=== PATIENT | female | born 2000 | race Caucasian/White ===

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

== ENCOUNTER 2018-01-09 14:01 | Emergency (ER) | payer MEDICAID | END 2018-01-09 15:36 | disposition home or self-care (01) | LOC: D.ER 14:01 | DX: S80.01XA Contusion of right knee, initial encounter (principal); W19.XXXA Unspecified fall, initial encounter; Y93.89 Activity, other specified; Y92.830 Public park as the place of occurrence of the external cause; S83.91XA Sprain of unspecified site of right knee, initial encounter ==

== ENCOUNTER 2018-01-21 10:07 | Emergency (ER) | payer MEDICAID ==
[2018-01-21 10:53] LABS: UDS - AMPHET NEGATIVE QUAL (NEGATIVE); UDS - BARB NEGATIVE QUAL (NEGATIVE); UDS - BENZO NEGATIVE QUAL (NEGATIVE); UDS - COCAINE NEGATIVE QUAL (NEGATIVE); UDS - OPIATE NEGATIVE QUAL (NEGATIVE); UDS - PCP NEGATIVE QUAL (NEGATIVE); UDS - THC NEGATIVE QUAL (NEGATIVE)
[2018-01-21 11:03] LABS: APPEARANCE HAZY (CLEAR); COLOR DK YELLOW (YELLOW)
[2018-01-21 11:04] LABS: BACTERIA FEW /hpf (NONE SEEN); BILIRUBIN NEGATIVE (NEGATIVE); EPITHELIAL CELLS 0-5 /hpf (0-5); GLUCOSE NEGATIVE (NEGATIVE); KETONE NEGATIVE (NEGATIVE); MUCUS >1+ /lpf (NONE SEEN); NITRITE NEGATIVE (NEGATIVE); PROTEIN NEGATIVE (NEGATIVE); RED CELLS - URINE 25-50 /hpf (0-5); SPECIFIC GRAVITY 1.015 (1.005-1.020); UROBILINOGEN NORMAL (NORMAL); WHITE CELLS - URINE 0-5 /hpf (0-5)
[2018-01-21 11:07] LABS: BASOPHILS 0.2 % (0-2); EOSINOPHILS 3.6 % (0-7); HEMOGLOBIN 10.6 g/dL (12-16); IMMATURE GRANULOCYTES 0.5 % (0-5); LYMPHOCYTES 30.4 % (15-50); MCH 24.5 pg (26.0-34.0); MCHC 32.1 g/dL (31.0-37.0); MCV 76.2 fL (80.0-100.0); MEAN PLATELET VOLUME 9.7 fL (7.4-10.4); MONOCYTES 10.1 % (2-11); NEUTROPHILS 55.2 % (40-80); PLATELET COUNT 361 10x3/uL (130-400); RBC 4.33 10x6/uL (4.00-5.40); RDW 16.2 % (11.5-14.5); WBC 8.1 10x3/uL (4.8-10.8)
[2018-01-21 11:37] LABS: ALBUMIN 2.9 g/dL (3.4-5.0); ALKALINE PHOSPHATASE 74 U/L (46-116); ALT (SGPT) 15 U/L (10-68); BILIRUBIN - TOTAL 0.14 mg/dL (0.2-1.3); CALC OSMOLALITY 274 mosm/kg (275-300); CALCIUM 8.8 mg/dL (8.5-10.1); CARBON DIOXIDE 25.1 mmol/L (21.0-32.0); CHLORIDE - SERUM 105 mmol/L (98-107); CREATININE - SERUM 0.7 mg/dL (0.6-1.3); GLUCOSE 102 mg/dL (74-106); POTASSIUM - SERUM 3.6 mmol/L (3.5-5.1); PROTEIN - SERUM 6.9 g/dL (6.4-8.2); SODIUM 138 mmol/L (136-145); UREA NITROGEN 11 mg/dL (7-18); eGFR NON AFRICAN AMERICAN > 90 mL/min (90-120)
== END 2018-01-21 11:15 | disposition home or self-care (01) ==
LOC: D.ER 10:07
PROVIDERS: Emergency Medicine
DX: F43.22 Adjustment disorder with anxiety (principal); Z86.59 Personal history of other mental and behavioral disorders; F43.10 Post-traumatic stress disorder, unspecified

== ENCOUNTER → 2018-01-28 09:49 | Outpatient (CLI) | payer MEDICAID | END | disposition home or self-care (01) | LOC: D.US 09:49 | DX: N63.21 Unspecified lump in the left breast, upper outer quadrant (principal) ==

== ENCOUNTER 2018-02-01 23:11 | Emergency (ER) | payer MEDICAID ==
[2018-02-02 01:46] LABS: APPEARANCE CLEAR (CLEAR); BILIRUBIN NEGATIVE (NEGATIVE); COLOR YELLOW (YELLOW); GLUCOSE NEGATIVE (NEGATIVE); KETONE SMALL mg/dL (NEGATIVE); NITRITE NEGATIVE (NEGATIVE); PROTEIN NEGATIVE (NEGATIVE); UROBILINOGEN NORMAL (NORMAL)
[2018-02-02 01:50] LABS: BASOPHILS 0.1 % (0-2); EOSINOPHILS 0.5 % (0-7); HEMATOCRIT 35.2 % (36.0-48.0); HEMOGLOBIN 11.3 g/dL (12-16); IMMATURE GRANULOCYTES 0.2 % (0-5); MCH 24.2 pg (26.0-34.0); MCHC 32.1 g/dL (31.0-37.0); MCV 75.4 fL (80.0-100.0); MEAN PLATELET VOLUME 9.5 fL (7.4-10.4); MONOCYTES 4.9 % (2-11); NEUTROPHILS 88.3 % (40-80); PLATELET COUNT 361 10x3/uL (130-400); RBC 4.67 10x6/uL (4.00-5.40); RDW 16.5 % (11.5-14.5); WBC 15.6 10x3/uL (4.8-10.8)
[2018-02-02 01:59] LABS: ALBUMIN 3.5 g/dL (3.4-5.0); ALKALINE PHOSPHATASE 79 U/L (46-116); ALT (SGPT) 18 U/L (10-68); BILIRUBIN - TOTAL 0.28 mg/dL (0.2-1.3); CALC OSMOLALITY 276 mosm/kg (275-300); CALCIUM 8.9 mg/dL (8.5-10.1); CARBON DIOXIDE 26.4 mmol/L (21.0-32.0); CHLORIDE - SERUM 101 mmol/L (98-107); CREATININE - SERUM 0.8 mg/dL (0.6-1.3); GLUCOSE 119 mg/dL (74-106); POTASSIUM - SERUM 3.8 mmol/L (3.5-5.1); PROTEIN - SERUM 7.7 g/dL (6.4-8.2); SODIUM 137 mmol/L (136-145); UREA NITROGEN 19 mg/dL (7-18); eGFR NON AFRICAN AMERICAN > 90 mL/min (90-120)
== END 2018-02-02 03:10 | disposition home or self-care (01) ==
LOC: D.ER 23:11
PROVIDERS: Emergency Medicine
DX: R19.7 Diarrhea, unspecified (principal)

== ENCOUNTER 2018-08-26 00:34 | Emergency (ER) | payer MEDICAID ==
[~2018-08-26] VITALS: Ht 152.4 cm; Wt 45.5 kg
[2018-08-26 00:39] VITALS: Ht 152.4 cm; Wt 45.5 kg
[2018-08-26] MEDS ORDERED: birth control pill (00:40)
[2018-08-26 01:29] VITALS: BP 100/66
== END 2018-08-26 01:30 | disposition home or self-care (01) ==
LOC: D.ER 00:34
DX: D24.2 Benign neoplasm of left breast (principal)

== ENCOUNTER 2018-09-28 01:38 | Emergency (ER) | payer MEDICAID ==
[~2018-09-28] VITALS: Ht 152.4 cm; Wt 59.1 kg
[~2018-09-28 01:38] MED LIST: birth control pill
[2018-09-28 01:42] VITALS: Ht 152.4 cm; Wt 59.1 kg
[2018-09-28] MEDS ORDERED: FLUTICASONE PRO16 GM NASAL (01:59)
[2018-09-28 02:20] VITALS: BP 112/67
== END 2018-09-28 02:20 | disposition home or self-care (01) ==
LOC: D.ER 01:38
DX: J30.9 Allergic rhinitis, unspecified (principal); R09.89 Other specified symptoms and signs involving the circulatory and respiratory systems

== ENCOUNTER 2018-10-23 05:10 | Emergency (ER) | payer MEDICAID ==
[~2018-10-23] VITALS: Ht 153.2 cm; Wt 59.1 kg
[~2018-10-23 05:10] MED LIST changes: +FLUTICASONE PRO16 GM NASAL
[2018-10-23 05:20] VITALS: BP 135/72; Ht 153.2 cm; Wt 59.1 kg
[2018-10-23] MEDS ORDERED: VENTOLIN HFA18 GM INH (05:30)
[2018-10-27] MEDS ORDERED: VENTOLIN HFA18 GM INH (02:09)
== END 2018-10-23 06:15 | disposition home or self-care (01) ==
LOC: D.ER 05:10
DX: J45.901 Unspecified asthma with (acute) exacerbation (principal)

== ENCOUNTER → 2018-10-27 | Emergency (ER) | payer MEDICAID | END | disposition home or self-care (01) | LOC: D.ER 01:54 | DX: J45.901 Unspecified asthma with (acute) exacerbation (principal); R07.9 Chest pain, unspecified ==